=== PATIENT | female | born 1950 | race Caucasian/White ===

== ENCOUNTER 2019-09-26 12:30 | Outpatient (RCR) | payer OTHER, SELFPAY ==
--- NOTE | 2019-08-30 11:04 | PTOPEVAL ---
PHYSICAL THERAPY EVALUATION AND PLAN OF CARE Thank you for referring this patient to [facility]. Pat will be seen in physical therapy 1-2x/week for 4-6 weeks to treat left shoulder pain. Please review, sign, date and return this plan of care RAMSES. I agree with and certify that the following plan of care is medically necessary. Referring Physician Date Attending Provider: Viktor Espinal MD Assessment Status Evaluation Outpatient Past Medical History Neurological History Hx Parkinson's Disease Yes Cardiovascular History Hx Hypercholesterolemia Yes Hx Hypertension Yes Evaluation Information Problem Diagnosis left partial rotator cuff tear Onset 05/09/2019 Cause insidious Subjective Information Pat is here today with 4 Query Text:As Reported By Patient/ months of left shoulder pain Family diagnosed as a partial rotator cuff tear. She does not recall and injury, but she does participate in [email or web address] program and Spinning class for Parkinson's disease, so she wonders if it occured with some of the exercises. She received a cotisone injection a week ago and she feels like it is night and day. Left Shoulder(s) Reported Pain Level 0 Pain Description Sharp Pain Frequency Chronic,Intermittent Current Pain Intensity 0 Lowest Pain Intensity 0 Greatest Pain Intensity 7 Pain Aggravating Factors Exercise/Activity Pain Score 0: Self Report Scapular/ Shoulder Range of Motion Left Shoulder Flexion - Active 131 Shoulder Abduction - Active 100 Shoulder Medial Rotation - Active T6 Query Text:Reach Behind the Back Shoulder Lateral Rotation - Active Occiput Query Text:Reach Behind the Head Scapular/Shoulder Range of Motion stiffness Comments Scapular/Shoulder Left Shoulder Flexion Strength 4 Good Shoulder Abduction Strength 4+ Good + Shoulder Medial Rotation Strength 4+ Good + Shoulder Lateral Rotation Strength 4- Good - Posture Thoracic Spine Posture Flattened Thorax Posture Neutral Lumbar Spine Posture Decreased Lordosis Shoulder Posture (L) Forward,(R) Forward Scapula Posture (R) Depressed,(L) Tipped Palpation trigger point to left levator scapula; left shoulder rests
--- NOTE | 2019-09-26 13:25 | PTOPEVAL ---
PHYSICAL THERAPY DISCHARGE REPORT Thank you for referring this patient to [facility]. I recommend Pat to discharge from PT with HEP at this time. Please review, sign, date and return this plan of care RAMSES. I agree with and certify that the following plan of care is medically necessary. Referring Physician Date Attending Provider: Viktor Espinal MD Discharge Outpatient Past Medical History Neurological History Hx Parkinson's Disease Yes Cardiovascular History Hx Hypercholesterolemia Yes Hx Hypertension Yes Evaluation Information Problem Diagnosis left partial rotator cuff tear Onset 05/09/2019 Cause insidious Subjective Information Pat is here today after 5 PT Query Text:As Reported By Patient/ sessions for left shoulder Family pain. She reports she is able to use her 2# weights at her exercise class again and she is able to sleep without pain. Reports she feels confident in her continued rehabilitation. Numeric (1 - 10) Self Report Pain Assessment Left Shoulder(s) Reported Pain Level 1 Interventions Used By Clinicians Exercise,Joint Mobilization Pain Score Pain Score 1: Self Report Scapular/ Shoulder Range of Motion Left Shoulder Flexion - Active 150 Shoulder Abduction - Active 140 Shoulder Medial Rotation - Active T6 Query Text:Reach Behind the Back Shoulder Lateral Rotation - Active T3 Query Text:Reach Behind the Head Scapular/Shoulder Range of Motion stiffness Comments Scapular/Shoulder Left Shoulder Flexion Strength 4+ Good + Shoulder Abduction Strength 5 Normal Shoulder Medial Rotation Strength 5 Normal Shoulder Lateral Rotation Strength 4+ Good + Palpation decreased tenderness to perispacular muscles Clinical Summary Hafsa has participated in physical therapy for 5 visits for left shoulder pain. She was provided with and educated on home exercise program, of which she is now very confident in her abilities to perform independently. She presents today having met or nearly met her goals for left shoulder function and she presents as performing at baseline activity level. I
== END 2019-09-26 14:47 | disposition home or self-care (01) ==
LOC: ANHPT 12:30
PROVIDERS: PCP Family Medicine; Visit Provider Orthopaedic Surgery
DX: M75.112 Incomplete rotator cuff tear or rupture of left shoulder, not specified as traumatic (principal)
CPT/HCPCS: 97110; 97140; 97162

== ENCOUNTER → 2020-06-11 11:03 | Outpatient (CLI) | payer OTHER, SELFPAY ==
--- NOTE | ~2020-06-11 | XR_ITS ---
EXAMINATION: XR hip RT min 2V DATE: 06/11/2020 11:22 INDICATION: Right hip pain TECHNIQUE: Two views of right hip were obtained. COMPARISON: 07/17/2014 FINDINGS: Bone alignment is normal. There is no fracture. Mild osteoarthritis of the right hip is unc hanged. Calcified atherosclerosis is noted. IMPRESSION: 1. Mild right hip osteoarthritis without acute findings or significant interval change. Reviewed, dictated and finalized at location A. RNATIONAL TRADE ANALYST
== END ==
PROVIDERS: PCP Internal Medicine; Visit Provider Internal Medicine
DX: M16.11 Unilateral primary osteoarthritis, right hip (principal)
CPT/HCPCS: 73502

== ENCOUNTER 2020-09-12 11:00 | Outpatient (RCR) | payer OTHER, SELFPAY ==
--- NOTE | 2020-08-13 10:59 | LSVTBIG ---
PHYSICAL THERAPY EVALUATION AND PLAN OF CARE Thank you for referring Farhana Tran to [facility].? The patient is scheduled to be seen for therapy? 2x/week for 4 weeks. Please review, sign, date and return this plan of care RAMSES. I agree with and certify that the following plan of care is medically necessary. Referring Physician Date Attending Provider: Uriel Kim MD [facility] Physical Therapy Outpatient Past Medical History Neurological History Hx Parkinson's Disease Yes Cardiovascular History Hx Hypercholesterolemia Yes Hx Hypertension Yes Evaluation Information Problem Diagnosis Parkinson's Disease Subjective Information Reports a worsening of Query Text:As Reported By Patient/ Parkinson's Disease in the Family last 6 months, mostly due to decreased activity and exercise from gym closing during the pandemic. Hafsa is usually a very motivated and active person. Pain Assessment Timing of Pain Assessment Timing of Pain Assessment Assessment Pain Scale Pain Scale Used Numeric (1 - 10) Self Report Pain Assessment Right Hip(s) Reported Pain Level 3 Pain Score Pain Score 3: Self Report Additional Pain Score Comments OA of right hip; at rest she is ok, but feels pain in the groin when she gets up and walks Interventions Used Interventions Used By Clinicians Exercise Pain Relief Interventions Used By Medication Patient Parkinson's Related History Parkinson's Related History Diagnosis/Stage Date Of Initial 2015 Diagnosis What Were Your Initial Symptoms Of tremor Parkinson's Disease? Do You Have A Tremor? Yes Describe Tremors left hand tremor Medication For Parkinson's Disease carbadopa-levadopa 3x/day In What Ways Are Your Medications For states she does not notice an Parkinson's Helpful? up and a down to taking the medication, no significant changes, but she does take the medications Does Your Parkinson Medication Affect not significantly Your Movement? Please Describe Do You Experience On/Off Symptoms? no Please Describe Have You Had Neurosurgery? Please none Describe Have You Had Orthopedic Surgery? Please none Describe Motor Symptoms Motor Symptoms When Did You First Start To Notice increased changes in the last Changes In Movement You Associate with 6 months, worsening symptoms PD of PD; back seems to
--- NOTE | 2020-08-15 11:15 | LSVTBIG ---
OCCUPATIONAL THERAPY EVALUATION REPORT & D/C SUMMARY 08/15/2020 Hafsa presents to outpatient OT with dx of Parkinson's Disease. OT evaluation reveals intact, functional, and symmetrical UE functional use. Patient has good motor control of BUEs, symmetrical amplitude of movement, and no coordination deficits identified. Pat also verbalizes concern about having a co-pay and attending therapy 4 days/week as [facility]SVT program typically recommends. Considering the patient's high-level functioning she is appropriate for a modified version of the LSVT program, only attending 2x/week. This will be completed by PT. No skilled OT needs identified at this time. Thank you for referring Farhana Tran to [facility].? Please review, sign, date and return this evaluation report RAMSES. I agree with and certify that the following plan of care is medically necessary. Referring Physician Date Referring Provider: [facility] Evaluation Therapy Discipline Therapy Discipline Occupational Therapy Therapy Assessment Status Assessment Status Assessment Status Evaluation Outpatient Past Medical History Neurological History Hx Parkinson's Disease Yes Cardiovascular History Hx Hypercholesterolemia Yes Hx Hypertension Yes Evaluation Information Problem Diagnosis Parkinson's Disease Subjective Information Reports a worsening of Query Text:As Reported By Patient/ Parkinson's Disease in the Family last 6 months, mostly due to decreased activity and exercise from gym closing during the pandemic. Hafsa is usually a very motivated and active person. Previous Treatments Previous Treatments For This Problem She states she attends [employer] 2 days/week. Pain Assessment Timing of Pain Assessment Timing of Pain Assessment Assessment Self Report Self Report Pain Level 0 Pain Score Pain Score 0: Self Report Parkinson's Related History Parkinson's Related History Diagnosis/Stage Date Of Initial 2015 Diagnosis What Were Your Initial Symptoms Of Tremor Parkinson's Disease? Do You Have A Tremor? Yes Describe Tremors left hand tremor, freezing gait Medication For Parkinson's Disease carbadopa-levadopa 3x/day In What Ways Are Your Medications For states she does not notice a Parkinson's Helpful? change with medication doses Does Your Parkinson Medication Affect not significantly Your Movement? Please Describe Do You Experience On/Off Symptoms? no Please Describe Have You Had Neurosurgery? Please none Describe Have You Had Orthopedic Surgery? Please none Describe Social History Social History Stair Rails Yes,Ri
--- NOTE | 2020-08-29 09:49 | PCPTNOTE ---
Patient called & cancelled scheduled appointment this date due to illness.
--- NOTE | 2020-09-05 11:45 | PCPTNOTE ---
Patient called & cancelled scheduled appointment this date due to having to take her dog to the ER.
--- NOTE | 2020-09-12 11:35 | LSVTBIG ---
PHYSICAL THERAPY DISCHARGE NOTE Thank you for referring Farhana Tran to [facility]. Please review, sign, date and return this plan of care RAMSES. I agree with and certify that the following plan of care is medically necessary. Referring Physician Date Attending Provider: Uriel Kim MD [facility] Physical Therapy Discharge Diagnosis Parkinson's Disease Subjective Information Reports that she feels better, Query Text:As Reported By Patient/ but continues to feel there Family is still some strength to be had. Self Report Pain Assessment Right Hip(s) Reported Pain Level 1 Pain Score Pain Score 1: Self Report Additional Pain Score Comments OA of right hip; at rest she is ok, but feels pain in the groin when she gets up and walks Balance Assessment Goldman Balance Assessment 54/56 POINTS Timed Up and Go Test (TUG) (Seconds) 7 Assistive Devices None Comments 1month ago = 13seconds 5 Time Sit to Stand Time in Seconds 9.25 5 Time Sit to Stand Comments 1month ago = 12.36seconds Functional Gait Assessment: Gait Assessment 6 Minute Walk Total Distance (feet) 1,337 6 Minute Walk Gait Speed Score (feet/ 3.71 second) 6 Minute Gait Comments limited arm swing, arms generally held in high guard position out of habit PT Clinical Summary Farhana is a 69 yo female diagnosed with Parkinson's Disease. She presents today meeting or nearly meeting all functional goals. All functional measures are measuring within normal limits compared to average females of her age. Hafsa describes feeling a greater awareness of her body when she is walking and functioning. She is able to self cue big movements independently while wlaking and performing functional tasks including putting on her coat, cooking, and while stepping over or around obstacles. Hafsa takes a [employer] class and during the
== END 2020-09-12 12:41 | disposition home or self-care (01) ==
LOC: ANHPT 11:00
PROVIDERS: PCP Internal Medicine
DX: G20 Parkinson's disease (principal)
CPT/HCPCS: 97110; 97116; 97162; 97165

== ENCOUNTER 2021-05-30 10:44 | Outpatient (CLI) | payer OTHER, SELFPAY ==
--- NOTE | ~2021-05-30 | MR_ITS ---
EXAMINATION: MR shoulder RT wo con DATE: 05/30/2021 12:53 INDICATION: Right shoulder pain TECHNIQUE: Magnetic resonance imaging (MRI) of the right shoulder was performed without intravenous c ontrast. Sequences included axial PD-weighted FS FSE, coronal oblique PD-weighted FS FSE, coronal obl ique T2-weighted FS FSE, sagittal PD-weighted FS FSE, and sagittal T1-weighted SE. COMPARISON: None. FINDINGS: Coracoacromial arch: The acromion undersurface is curved in morphology (type II). The coracoacromial ligament is normal. M ild to moderate acromioclavicular osteoarthritis with mild subarticular cystic change at the lateral head of the clavicle. Rotator cuff: Mild to moderate supraspinatus and subscapularis tendinopathy. There is a small partial-thickness art icular sided tear at the superior facet footplate of the supraspinatus tendon which measures 5 mm AP and involves 1/2-2/3 of the tendon thickness. Infraspinatus and teres minor tendons are normal. Yu l rotator cuff muscle bulk and signal. Biceps tendon, glenoid labrum and glenohumeral cartilage: Long head of the biceps tendon is normal. Large labral tear beginning posterosuperiorly at the 10:30 position and extending along the superior and anterior labrum to the 5:00 position inferiorly. The po sterior and inferior labrum appears intact but small. Extensive partial thickness cartilage loss thro ughout the humeral head and glenoid with generally smooth appearing surface and without degenerative subchondral changes. The cartilage loss appears greatest along the anterior glenoid. Fluid: Small glenohumeral joint effusion with mild synovitis at the axillary recess and at the deep subscapu lar recess. There is [id number] amount fluid in the subacromial/subdeltoid bursa consistent wi th bursitis. Bones: Normal marrow signal. No fracture or pathologic marrow replacing process. IMPRESSION: 1. Mild to moderate supraspinatus and subscapularis tendinopathy with small moderate severity articul ar sided tear at the distal supraspinatus tendon. 2. Moderate glenohumeral osteoarthritis with large labral tear extending from the posterior superior glenoid anteriorly and inferiorly to the anteroinferior glenoid and small glenohumeral joint effusion . 3. Mild to moderate acromioclavicular osteoarthritis. 4. Mild to moderate subacromial subdeltoid bursitis. Reviewed, dictated and finalized at location A. IMPRESSION: 1. Mild to moderate supraspinatus and subscapularis tendinopathy with small mod erate severity articular sided tear at the distal supraspinatus tendon. 2. Moderate glenohumeral osteoarthritis with large labral tear extending from t he posterior superior glenoid anteriorly and inferiorly to the anteroinferior g lenoid and small glenohumeral joint effusion. 3. Mild to moderate acromioclavicular osteoarthritis. 4. Mild to moderate subacromial subdeltoid bursitis.
== END 2021-05-30 10:45 | disposition home or self-care (01) ==
PROVIDERS: PCP Internal Medicine; Visit Provider Orthopaedic Surgery
DX: M19.011 Primary osteoarthritis, right shoulder (principal); M75.51 Bursitis of right shoulder; S43.431A Superior glenoid labrum lesion of right shoulder, initial encounter
CPT/HCPCS: 73221

== ENCOUNTER 2021-06-06 10:47 | Outpatient (CLI) | payer OTHER, SELFPAY ==
--- NOTE | ~2021-06-06 | XR_ITS ---
EXAMINATION: XR lg joint inject/asp w image DATE: 06/06/2021 11:33 INDICATION: Osteoarthritis of right shoulder. TECHNIQUE: A time-out was performed to verify the patient's name, date of , and procedure to b e performed. The procedure including the risks, benefits, and alternatives was discussed with the pat ient. Risks discussed included bleeding and infection. The patient understood the risks and agreed to proceed. The skin overlying the right glenohumeral joint was prepped and draped in usual sterile fa shion. Anesthetic was administered with 1% lidocaine subcutaneously. A 22 G needle was advanced und er fluoroscopic guidance into the joint. Injection of 1 mL of Omnipaque 240 confirmed intra-articula r position of the needle. Subsequently, injectate consisting of 3 mL 1% lidocaine and 1 mL 80 mg/mL Depo-Medrol was instilled. The needle was removed and the entry site was cleaned and dressed. There were no immediate complications. Fluoroscopy exposure time was 0.0 minutes. The total number of imag es was 2. FINDINGS: Real-time fluoroscopy demonstrates the needle in the right glenohumeral joint. Patient's pa in prior to procedure:8.5/10. Patient's pain following the procedure: 3/10. IMPRESSION: 1. Fluoroscopy guided right glenohumeral joint injection of local anesthetic and steroid with decreas e in the patient's presenting pain. Reviewed, dictated and finalized at location A. IMPRESSION: 1. Fluoroscopy guided right glenohumeral joint injection of local anesthetic an d steroid with decrease in the patient's presenting pain.
== END 2021-06-06 10:48 | disposition home or self-care (01) ==
LOC: ANHIMG 10:54
PROVIDERS: PCP Internal Medicine; Visit Provider Orthopaedic Surgery
DX: M19.011 Primary osteoarthritis, right shoulder (principal)
CPT/HCPCS: 20610; 77002; J1040; Q9966

== ENCOUNTER 2021-07-16 12:30 | Outpatient (RCR) | payer OTHER, SELFPAY ==
--- NOTE | 2021-06-18 14:55 | PTOPEVAL ---
Thank you for referring Farhana Tran to [facility].? The patient is scheduled to be seen for therapy? 2 x/week for 4 weeks. Please review, sign, date and return this plan of care RAMSES. I agree with and certify that the following plan of care is medically necessary. Referring Physician Date Attending Provider: Viktor Espinal MD Diagnosis right RTC tear and OA GH joint Additional Evaluation Detail MRI: Mild to moderate supraspinatus and subscapularis tendinopathy with small moderate severity articular sided tear at the distal supraspinatus tendon. 2. Moderate glenohumeral osteoarthritis with large labral tear extending from the posterior superior glenoid anteriorly and inferiorly to the anteroinferior glenoid and small glenohumeral joint effusion. 3. Mild to moderate acromioclavicular osteoarthritis. 4. Mild to moderate subacromial subdeltoid bursitis. Subjective Information C/o right shoulder pain for ~ Query Text:As Reported By Patient/ 6 months. Family She received an injection to the shoulder on 06/06/21, but does not feel like it helped. 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 She goes to the [facility] for spinning class and resistance training. she also attends [employer] class and has had to have modification made due to pain. Pain Assessment Right Shoulder(s) Reported Pain Level 3 Pain Description Aching,Sharp Pain Frequency Continuous Lowest Pain Intensity 2 Greatest Pain Intensity 8 Pain Aggravating Factors Exercise/Activity,Lifting Upper Extremity Range of Motion Scapular/ Shoulder Range of Motion Left Shoulder Flexion - Active 140 Shoulder Extension - Active 50 Shoulder Abduction - Active 120 Shoulder Medial Rotation - Active T9:Reach Behind the Back
--- NOTE | 2021-07-04 10:51 | PCPTNOTE ---
Patient called & cancelled scheduled appointment this date due to not feeling well.
--- NOTE | 2021-07-16 13:19 | PTOPEVAL ---
Physical Therapy Discharge Summary Thank you for referring Farhana Tran to [facility].?Farhana has attended 8 therapy visits to address her UE impairments. She demonstrates improved UE function with improved range, strength and pain. She has achieved her therapy goals at this time. Will DC skilled therapy services with recommendations to continue HEP. Please review, sign, date and return this discharge summary RAMSES. I agree with and certify that the following plan of care is medically necessary. Referring Physician Date Attending Provider: Viktor Espinal MD Diagnosis right RTC tear and OA GH joint Additional Evaluation Detail MRI: Mild to moderate supraspinatus and subscapularis tendinopathy with small moderate severity articular sided tear at the distal supraspinatus tendon. 2. Moderate glenohumeral osteoarthritis with large labral tear extending from the posterior superior glenoid anteriorly and inferiorly to the anteroinferior glenoid and small glenohumeral joint effusion. 3. Mild to moderate acromioclavicular osteoarthritis. 4. Mild to moderate subacromial subdeltoid bursitis. Subjective Information She received an injection to Query Text:As Reported By Patient/ the shoulder on 06/06/21. As Family result of skilled therapy services she reports improved pain and improved UE function. She is able to lift objects better. 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 Denies problems with driving or recreational activities/ exercise class. Pain Assessment Right Shoulder(s) Reported Pain Level 1 Pain Description Aching Lowest Pain Intensity 1 Greatest Pain Intensity 4 Pain Aggravating Factors Prolonged Position Upper Extremity Range of Motion Scapular/ Shoulder Range of Motion Right Shoulder Flexion - Active 135 Shoulder Extension - Active 50 Shoulder Abduction - Active 110 Shoulder Medial Rotation - Active T11:Reach Behind the Back Shoulder Lateral Rotation - Active C7:Reach Behind the Head Scapular/Shoulder Range of Motion no pain with shoulder motions
== END 2021-07-16 17:08 | disposition home or self-care (01) ==
LOC: ANHPT 12:30
PROVIDERS: PCP Internal Medicine; Visit Provider Orthopaedic Surgery
DX: M75.101 Unspecified rotator cuff tear or rupture of right shoulder, not specified as traumatic (principal); M19.011 Primary osteoarthritis, right shoulder
CPT/HCPCS: 97035; 97110; 97140; 97162

== ENCOUNTER 2021-09-07 10:43 | Emergency (ER) | payer OTHER, SELFPAY ==
[2021-09-07 10:53] VITALS: BP 110/58; PULSE 65; RESP 16; TEMP 36.4; O2SAT 99
--- NOTE | 2021-09-07 11:17 | ED.EYEPROB ---
HPI - Eye Problem General Chief complaint: Eye Problems Stated complaint: left eye itchy/redness Time Seen by Provider: 09/07/21 11:18 Source: patient, RN notes reviewed and old records reviewed Mode of arrival: ambulatory Limitations: no limitations History of Present Illness HPI Narrative: 70 year old female who presents to [facility] care with complaints of red swollen red irritated lesion to the left lower eyelid for 1 week duration. Patient denies any acute pain to her left eye with no drainage noted or any visual changes report that area is itchy. Patient has not had any eye drainage or any redness to sclera or conjunctiva. chief complaint: other (stye left lower eyelid) Onset (ago): week(s) (1) Onset description: gradual Location: left eye Related Data Home Medications Medication Instructions Recorded Confirmed aspirin 325 mg tablet 325 mg PO DAILY 07/11/19 09/07/21 carbidopa 25 mg-levodopa 100 mg 2 tablet PO TID tablet 01/04/20 09/07/21 tablet cholecalciferol (vitamin D3) 125 125 mcg PO DAILY 01/04/20 09/07/21 mcg (5,000 unit) capsule magnesium 250 mg tablet 250 mg PO .three times a week 01/04/20 09/07/21 tablet potassium chloride [Klor-Con M20] 20 meq PO DAILY 09/07/21 09/07/21 Allergies Allergy/AdvReac Type Severity Reaction Status Date / Time JOVON Inhibitors Allergy Mild cough Verified 09/07/21 10:59 cephalexin Allergy Mild rash Verified 09/07/21 10:59 Review of Systems Review of Systems: CONSTITUTIONAL: Denies fever, chills, or sweats. EYES: Denies visual changes, redness, or discharge.positive for lesion which is red and raised to left lower eyelid ENT: Denies rhinorrhea, congestion, sore throat, or otalgia. CARDIOVASCULAR: Denies chest pain, palpitations, or edema. RESPIRATORY: Denies cough or dyspnea. GASTROINTESTINAL: Denies abdominal pain, nausea, vomiting, or diarrhea. GENITOURINARY: Denies dysuria or hematuria. SKIN: Denies rash or itching. MUSCULOSKELETAL: Denies back pain, joint pain, or myalgia. NEUROLOGIC: Denies headache, numbness, or weakness.fine tremors noted to hand related to Parkinson disease PSYCHIATRIC: Denies anxiety or depression. All systems reviewed & are unremarkable except as noted in HPI and below PMFSH Past Medical History Medical History Essential (primary) hypertension Hyperlipidemia Parkinsons disease Rotator cuff tear Family History Family History Mother Cerebrovascular accident Family history of heart disease in male family member before age 55 Family history of lung cancer, Onset Age: 84 Father Family history of heart disease in male family member before age 55 Acute myocardial infarction, Onset Age: 51 Grandparent Acute myocardial infarction, Onset Age: 72 Family history unknown, Onset Age: 88 Social History Social History Smoking status: Former smoker Second hand tobacco smoke exposure: No Smoking end date: 08/09/05 Alcohol intake: never Substance use type: does not use Gender identity (if verbalized by the patient): Female Comments At time of signature, agree with nursing past medical, surgical, social and family history. There is no relevant family history pertinent to the presenting complaint Exam Narrative: GENERAL: Well-appearing, well-nourished, and in no acute distress. HEAD: Normocephalic, atraumatic. EYES: PERRLA and EOMI. small raised lesion to the left lower eyelid with no drainage noted no visual changes or any acute eye pain. ENT: Nares clear, no rhinorrhea or epistaxis. Mucous membranes moist.TM's normal with good light reflex, throat pink with no lesions exudates or tonsil swelling. NECK: Supple.no lymphadenopathy CHEST: Clear to auscultation. No respiratory distress.SAO2 99% on room air HEART: Regular rate and rhythm. No
== END 2021-09-07 11:40 | disposition home or self-care (01) ==
PROVIDERS: Emergency Provider Registered Nurse
DX: H00.015 Hordeolum externum left lower eyelid (principal); Z87.891 Personal history of nicotine dependence; I10 Essential (primary) hypertension; E78.5 Hyperlipidemia, unspecified; G20 Parkinson's disease; Z79.82 Long term (current) use of aspirin
CPT/HCPCS: 99213; G0463

== ENCOUNTER 2021-10-16 20:37 | Emergency (ER) | payer OTHER, SELFPAY ==
--- NOTE | ~2021-10-16 | XR_ITS ---
EXAMINATION: XR lumbar spine 2-3V DATE: 10/16/2021 21:31 INDICATION: Pain the left side of the lumbar spine TECHNIQUE: Anteroposterior and lateral views of the lumbar spine, and cone-down lateral view of the l umbosacral junction were obtained. COMPARISON: None. FINDINGS: S-shaped lumbar scoliosis with 20 degrees levocurvature between T12 and L2 and 20 degrees dextrocurva ture between L2 and L5. Sagittal alignment is normal. Minimal anterior wedging at T11 and T12. Lumbar vertebral body heights are normal. Body heights are normal. Severe disc height loss at L1-L2 and L4- L5, moderate disc height loss at T12-L1, L2-L3 and L5-S1 and mild disc height loss at L3-L4 at severa l levels in the lower thoracic spine. Moderate to severe lumbar facet osteoarthritis. Mild bilateral sacroiliac osteoarthritis. Atherosclerotic calcifications along the abdominal aorta and bilateral com mon iliac arteries. IMPRESSION: 1. S-shaped lumbar scoliosis with severe spondylosis. Reviewed, dictated and finalized at location A. ER RIVETER
[2021-10-16 20:39] VITALS: BP 139/69; PULSE 71; RESP 14; TEMP 36.6; O2SAT 100
--- NOTE | 2021-10-16 21:32 | ED.BACK ---
HPI - Back Pain/Injury General Chief Complaint: Extremity Problem,Nontraumatic Stated Complaint: nontraumatic L leg pain Time Seen by Provider: 10/16/21 20:50 Source: patient Mode of arrival: ambulatory Limitations: no limitations History of Present Illness HPI Narrative: 70-year-old female presents today with complaints of left lower back/buttock pain that radiates down the front of her leg to the knee. Patient denies any recent falls, injuries, or any aggravating factors that she is is aware of. Patient states the pain started couple weeks ago and was intermittent. She has been using Tylenol without any relief. Patient denies any urinary incontinence, fecal incontinence, saddle paresthesia, and increased weakness to lower extremities. Related Data Home Medications Medication Instructions Recorded Confirmed aspirin 325 mg tablet 325 mg PO DAILY 07/11/19 09/07/21 carbidopa 25 mg-levodopa 100 mg 2 tablet PO TID tablet 01/04/20 09/07/21 tablet cholecalciferol (vitamin D3) 125 125 mcg PO DAILY 01/04/20 09/07/21 mcg (5,000 unit) capsule magnesium 250 mg tablet 250 mg PO .three times a week 01/04/20 09/07/21 tablet potassium chloride [Klor-Con M20] 20 meq PO DAILY 09/07/21 09/07/21 Allergies Allergy/AdvReac Type Severity Reaction Status Date / Time JOVON Inhibitors Allergy Mild cough Verified 09/07/21 10:59 cephalexin Allergy Mild rash Verified 09/07/21 10:59 Review of Systems Review of Systems: CONSTITUTIONAL: Denies fever, chills, or sweats. EYES: Denies visual changes, redness, or discharge. ENT: Denies rhinorrhea, congestion, sore throat, or otalgia. CARDIOVASCULAR: Denies chest pain, palpitations, or edema. RESPIRATORY: Denies cough or dyspnea. GASTROINTESTINAL: Denies abdominal pain, nausea, vomiting, or diarrhea. GENITOURINARY: Denies dysuria or hematuria. SKIN: Denies rash or itching. MUSCULOSKELETAL: Left lower back/buttock pain radiating down the the front of the leg. Denies joint pain or myalgia. NEUROLOGIC: Denies headache, numbness, dizziness, or weakness. PSYCHIATRIC: Denies anxiety or depression. [facility] Past Medical History Medical History Essential (primary) hypertension Hyperlipidemia Parkinsons disease Rotator cuff tear Family History Family History Mother Cerebrovascular accident Family history of heart disease in male family member before age 55 Family history of lung cancer, Onset Age: 84 Father Family history of heart disease in male family member before age 55 Acute myocardial infarction, Onset Age: 51 Grandparent Acute myocardial infarction, Onset Age: 72 Family history unknown, Onset Age: 88 Social History Social History Smoking status: Former smoker Second hand tobacco smoke exposure: No Smoking end date: 08/09/05 Alcohol intake: never Substance use type: does not use Gender identity (if verbalized by the patient): Female Exam Narrative: GENERAL: Well-appearing, well-nourished, and in no acute distress. HEAD: Normocephalic, atraumatic. EYES: PERRLA and EOMI. ENT: Nares clear, no rhinorrhea or epistaxis. Mucous membranes moist. Oropharynx without tonsillar hypertrophy exudate or other lesions. Bilateral TMs pearly crawley nonbulging NECK: Supple. No adenopathy or masses. No carotid bruits or JVD CHEST: Clear to auscultation. No respiratory distress. No wheezes rales or rhonchi HEART: Regular rate and rhythm. No murmur heard. Normal peripheral pulses. ABDOMEN: Soft, nontender, nondistended, normal active bowel sounds. BACK/SPINE: No spinal process tenderness. Tenderness to left sacral area. EXTREMITIES: Normal range of motion. No edema. SKIN: Warm, dry, no rash. NEURO: No focal deficits. Alert and oriented x3. PSYCH: Normal mood and affect. Course Course
[2021-10-16] MEDS: HYDROcodone/acetaminophen (*CRX) 5-325 MG TABLET 1 TAB PO (21:33)
[2021-10-16 22:44] VITALS: BP 142/86; PULSE 86; RESP 17; O2SAT 96
[2021-10-16] MEDS: LIDOCAINE 5% PATCH 1 PATCH TRANSDERM (22:45)
== END 2021-10-16 22:44 | disposition home or self-care (01) ==
PROVIDERS: Emergency Provider Nurse Practitioner Family; PCP Internal Medicine
DX: M54.42 Lumbago with sciatica, left side (principal); I10 Essential (primary) hypertension; E78.5 Hyperlipidemia, unspecified; G20 Parkinson's disease; Z79.82 Long term (current) use of aspirin; Z87.891 Personal history of nicotine dependence; M47.816 Spondylosis without myelopathy or radiculopathy, lumbar region
CPT/HCPCS: 72100; 99283; A9270; J1100

== ENCOUNTER 2021-10-23 22:33 | Emergency (ER) | payer OTHER, SELFPAY ==
[2021-10-23 22:38] VITALS: BP 131/53; PULSE 66; RESP 18; TEMP 37.1; O2SAT 99
--- NOTE | 2021-10-23 23:44 | PC.NURSE ---
Care of pt assumed at this time
[2021-10-23 23:45] VITALS: BP 130/55; PULSE 83; RESP 18
[2021-10-24 00:12] LABS: Add Urine Microscopic? YES; Appearance Urine Cloudy (Clear); Bilirubin Urine Negative (Negative); Blood Urine 1+ (Negative); Color Urine Yellow (Yellow); Glucose Urine UA Negative (Negative); Ketones Urine Trace mg/dL (Negative); Leukocyte Esterase Ur Negative LEU/UL (Negative); Mucus Urine Rare /lpf; Nitrate Urine Negative (Negative); Protein Urine Negative (Negative); Specific Grav Ur 1.019 (1.001-1.035); Squamous Epithelial Cell Urine Occasional /hpf (Few); Urobilinogen Urine Negative mg/dL (<2.0); WBC Urine 0-3 /hpf
--- NOTE | 2021-10-24 00:23 | ED.FALL ---
HPI - Fall General Chief Complaint: Fall Stated Complaint: dizzy/left leg pain Time Seen by Provider: 10/23/21 22:48 Source: patient Mode of arrival: ambulatory Limitations: no limitations History of Present Illness HPI Narrative: 70-year-old female comes in with complaints of not feeling right over the last week. Patient seen here last week diagnosed with sciatica sent home with Larned, appears she visited her primary on the and also got a prescription for Larned. Patient states she thinks she was taking her prescription written from here and the primary's prescription. Primary's prescription was Larned 10/325 cut in 1:30 tablet every 8 hours as needed for pain prescription here was Larned 5 mg/325. Unsure of the amount of narcotics patient has been taking the last week. Patient states symptoms started after the new medications. Patient with what she calls a controlled fall today. Patient did not actually hit the floor. Patient's legs buckled and she caught herself on the wall. Patient's daughter at the bedside. States she has not been herself today. This morning patient seemed to be very out of it. At this point daughter states patient is much more herself. Patient alert and oriented x4. Still with pain to the left buttock radiating down the leg. Patient educated on pain management and aware that pain might not go away. Goal for pain management is tolerable. Related Data Home Medications Medication Instructions Recorded Confirmed aspirin 325 mg tablet 325 mg PO DAILY 07/11/19 09/07/21 carbidopa 25 mg-levodopa 100 mg 2 tablet PO TID tablet 01/04/20 09/07/21 tablet cholecalciferol (vitamin D3) 125 125 mcg PO DAILY 01/04/20 09/07/21 mcg (5,000 unit) capsule magnesium 250 mg tablet 250 mg PO .three times a week 01/04/20 09/07/21 tablet potassium chloride [Klor-Con M20] 20 meq PO DAILY 09/07/21 09/07/21 Allergies Allergy/AdvReac Type Severity Reaction Status Date / Time JOVON Inhibitors Allergy Mild cough Verified 09/07/21 10:59 cephalexin Allergy Mild rash Verified 09/07/21 10:59 Review of Systems Review of Systems: CONSTITUTIONAL: Denies fever, chills, or sweats. EYES: Denies visual changes, redness, or discharge. ENT: Denies rhinorrhea, congestion, sore throat, or otalgia. CARDIOVASCULAR: Denies chest pain, palpitations, or edema. RESPIRATORY: Denies cough or dyspnea. GASTROINTESTINAL: Denies abdominal pain, nausea, vomiting, or diarrhea. GENITOURINARY: Denies dysuria or hematuria. SKIN: Denies rash or itching. MUSCULOSKELETAL: Denies back pain, joint pain, or myalgia. NEUROLOGIC: Just feels off. Denies headache, numbness, dizziness, or weakness. PSYCHIATRIC: Denies anxiety or depression. PMFSH Past Medical History Medical History Essential (primary) hypertension Hyperlipidemia Parkinsons disease Rotator cuff tear Family History Family History Mother Cerebrovascular accident Family history of heart disease in male family member before age 55 Family history of lung cancer, Onset Age: 84 Father Family history of heart disease in male family member before age 55 Acute myocardial infarction, Onset Age: 51 Grandparent Acute myocardial infarction, Onset Age: 72 Family history unknown, Onset Age: 88 Social History Social History Smoking status: Former smoker Second hand tobacco smoke exposure: No Smoking end date: 08/09/05 Alcohol intake: never Substance use type: does not use Gender identity (if verbalized by the patient): Female Exam Narrative: GENERAL: Well-appearing, well-nourished, and in no acute distress. HEAD: Normocephalic, atraumatic. EYES: PERRLA and EOMI. ENT: Nares clear, no rhinorrhea or epistaxis. Mucous membranes moist. Oropharynx without tonsillar hypertrophy exudat
[2021-10-24 00:49] VITALS: BP 138/53; PULSE 65; RESP 19; O2SAT 98
== END 2021-10-24 00:51 | disposition home or self-care (01) ==
PROVIDERS: Emergency Medicine; Emergency Provider Nurse Practitioner Family; PCP Internal Medicine
DX: R42 Dizziness and giddiness (principal); T39.1X1A Poisoning by 4-Aminophenol derivatives, accidental (unintentional), initial encounter; M54.31 Sciatica, right side; G20 Parkinson's disease; I10 Essential (primary) hypertension; E78.5 Hyperlipidemia, unspecified; Z79.82 Long term (current) use of aspirin; Z87.891 Personal history of nicotine dependence
CPT/HCPCS: 51701; 81001; 99283

== ENCOUNTER 2021-12-16 14:00 | Outpatient (RCR) | payer OTHER, SELFPAY ==
--- NOTE | 2021-10-30 15:52 | PTOPEVAL ---
Thank you for referring Farhana Tran to [facility].? The patient is scheduled to be seen for therapy?1-2x/week for 6-8 weeks. Please review, sign, date and return this plan of care RAMSES. I agree with and certify that the following plan of care is medically necessary. Referring Physician Date Attending Provider: Lio Hernandez, MD Diagnosis acute low back pain with sciatica Onset 4 months Cause unknown Additional Evaluation Detail x-ray: S-shaped lumbar scoliosis with severe spondylosis. She lives alone in a house with steps to enter. She is limiting her normal task due to her increased symptoms. She is using an SBQC. Subjective Information C/o left low back pain Query Text:As Reported By Patient/ radiating into left buttock/ Family thigh region. c/o left hand numbness. Denies any injury. She was performing rock steady and [employer] exercises, but has not been able to leonel due to pain. She reports increased pain with standing, prolonged position, sleeping, sitting, sanitation supervisor, carrying task. She is not able to drive due to pain. Pain Assessment Left Lower Back Reported Pain Level 8 Pain Description Numbness,Radiating,Shooting, Tender on Palpation,Tingling Pain Radiation Left Leg Pain Frequency Chronic,Continuous Lowest Pain Intensity 3 Greatest Pain Intensity 10 Pain Aggravating Factors Exercise/Activity,Prolonged Position,Weight Bearing/ Standing Lower Extremity Muscle Strength Testing General Lower Extremity Strength Gross Lower Extremity Strength right ankle DF 5/5, knee ext: 5/5, hip flex: 4/5 jennifer hip ext: 3-/5, abd: 2/5 Hip Strength Left Hip Flexion Strength 3 Fair Hip Extension Strength 3- Fair - Hip Abduction Strength 2 Poor Hip Adduction Strength 2 Poor Knee Strength Left Knee Flexion Strength 3+ Fair + Knee Extension Strength 4- Good - Muscle Length Testing Muscle Length Testing Two-Joint Hip Flexor Shortened Muscles Short (R) Iliopsoas,Short (L)
--- NOTE | 2021-11-27 18:06 | PTOPEVAL ---
Physical Therapy Progress Note Thank you for referring Farhana Tran to [facility].? Pt referred to therapy due to acute low back pain with sciatica symptoms into left LE. She has complex medical history including Parkinson's disease. She has attended 9 therapy visits. As a result of therapy services she demonstrate improved pain, improved leonel with daily task and improved walking. She continues to have pelvic rotation impairment with mobility task. Poor position is contributed by her muscle weakness and abnormal tone and walking deviations. She is progressing towards her therapy goals with improve trunk motion, muscle strength and leonel with walking task. She would benefit from additional therapy to address her remaining goals and improve her function. She will be returning to her [employer] class to improve her general strength and fitness. The patient is scheduled to be seen for therapy?1 x/week for 3 weeks. Please review, sign, date and return this plan of care RAMSES. I agree with and certify that the following plan of care is medically necessary. Referring Physician Date Attending Provider: Lio Hernandez, Diagnosis acute low back pain with sciatica Onset 4 months Additional Evaluation Detail x-ray: S-shaped lumbar scoliosis with severe spondylosis. She lives alone in a house with steps to enter. She is limiting her normal task due to her increased symptoms. She is using an SBQC. Subjective Information C/o left low back pain Query Text:As Reported By Patient/ radiating into left buttock/ Family thigh region, but improved intensity. She has improved symptoms if she is able to sit and rest. She is sleeping better without increased pain. 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 She has returned to driving. Pain Assessment Left Lower Back Reported Pain Level 3 Pain Description Numbness,Radiating,Shooting, Tender on Palpation,Tingling Pain Radiation Left Leg Pain Frequency Chronic,Continuous Lowest Pain Intensity 1 Greatest Pain Intensity 7 Cervical and Lumbar ROM Lumbar ROM Lumbar Flexion Active fitter hand to Lumbar Comments 25% trunk rotation left and 10 % rotation to right- seated, painful to left full flex in seated position- no pain Lowe
--- NOTE | 2021-12-16 14:44 | PTOPEVAL ---
Physical Therapy Discharge Summary Thank you for referring Farhana Tran to [facility].? She was referred to therapy due to acute low back pain with sciatica symptoms into left LE. She has complex medical history including Parkinson's disease. She has attended 12 therapy visits from 10/30/21 to 12/16/21. As a result of therapy services she demonstrates improved back/buttock and leg pain, improved tolerance and performance with daily task and improved walking. Demonstrates improved LE strength and improved hip and back motion without increased pain symptoms. Demonstrates improved trunk position and control in standing and sitting position. Demonstrates consistent pelvic alignment. Farhana has met to partially met her therapy goals at this time. She demonstrates understanding and compliance with her HEP. She is returning to her normal activities without increased symptoms. Will DC skilled PT services at this time. Please review, sign, date and return this discharge summary RAMSES. I agree with and certify that the following plan of care is medically necessary. Referring Physician Date Attending Provider: Lio Hernandez, CC: Dr. Uriel Willis MD Diagnosis acute low back pain with sciatica Onset 4 months Cause unknown Additional Evaluation Detail x-ray: S-shaped lumbar scoliosis with severe spondylosis. She lives alone in a house with steps to enter. She is limiting her normal task due to her increased symptoms. She is using an SBQC. Subjective Information Reports improved back/leg pain Query Text:As Reported By Patient/ for the past 4 day. She is Family performing more household task . She is getting up more at home. She is performing 15 min of leg bike at home 3x/wk. She is not required to rest as frequently or for as long with activities at home. She is using the SI belt with improved symptoms. Pain Assessment Self Report Pain Assessment Left Lower Back Reported Pain Level 0 Cervical and Lumbar ROM Lumbar ROM Lumbar Flexion Active Floor:Hands to: Lumbar Comments 75% trunk rotation jennifer without pain in seated, full flex in seatd position- no pain Lower Extremity Muscle Strength Testing Gross Lower Extremity Strength right ankle DF 5/5, knee ext: 5/5, hip flex: 11/11, abd: 10/11 full bridge with resistance Hip Strength Left Hip Flexion Strength 3+ Fair + Hip Ex
== END 2021-12-17 10:30 | disposition home or self-care (01) ==
LOC: ANHPT 14:00
PROVIDERS: PCP Internal Medicine; Visit Provider Internal Medicine
DX: M54.42 Lumbago with sciatica, left side (principal); G20 Parkinson's disease
CPT/HCPCS: 97110; 97112; 97116; 97140; 97162; 97530

== ENCOUNTER 2025-03-26 10:32 | Outpatient (CLI) | payer MEDICARE, SELFPAY ==
--- NOTE | ~2025-03-26 | XR_ITS ---
Right Shoulder Technique: AP and scapular Y views were obtained. Clinical History: Pain Findings: No fracture or dislocation is seen. Osseous alignment is anatomic. There is severe glenohum eral joint degenerative change with large inferomedial humeral head osteophyte and joint space narrow ing/sclerosis. AC joint intact. Soft tissues are unremarkable. Impression: Severe glenohumeral joint degenerative change, as above. Reviewed, dictated and finalized at location M. Impression: Severe glenohumeral joint degenerative change, as above.
--- NOTE | ~2025-03-26 | XR_ITS ---
Left Shoulder Technique: AP and scapular Y views were obtained. Clinical History: Pain Findings: No fracture or dislocation is seen. Osseous alignment is anatomic. The glenohumeral joint d emonstrates moderate degenerative change. AC joint intact. Soft tissues are unremarkable. Impression: Moderate glenohumeral joint degenerative change. Reviewed, dictated and finalized at location . Impression: Moderate glenohumeral joint degenerative change.
== END 2025-03-26 10:33 | disposition home or self-care (01) ==
PROVIDERS: PCP Internal Medicine; Visit Provider Nurse Practitioner Family
DX: M19.012 Primary osteoarthritis, left shoulder (principal); M19.011 Primary osteoarthritis, right shoulder
CPT/HCPCS: 73030

== ENCOUNTER 2025-06-05 09:43 | Outpatient (CLI) | payer MEDICARE, SELFPAY ==
--- NOTE | ~2025-06-05 | CT_ITS ---
EXAMINATION: CT shoulder RT wo con DATE: 06/05/2025 10:04 INDICATION: Primary osteoarthritis, right shoulder. TECHNIQUE: Computed tomography (CT) of the right shoulder was performed without intravenous contrast. Automated exposure control and iterative reconstruction technique were employed. The dose-length product was 314.03 mGy-cm. COMPARISON: Right shoulder radiographs 05/30/2025 FINDINGS: Alignment is normal. No acute fracture. There is an old fracture of glenoid with nonunion. There is severe osteoarthritis of glenohumeral joint including bone volume loss of glenoid. There is severe acromioclavicular joint osteoarthritis. There is a large glenohumeral joint effusion with loose bodies. Subcoracoid impingement is noted. IMPRESSION: 1. 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 2. Severe glenohumeral joint osteoarthritis including bone volume loss of glenoid. 3. Large glenohumeral joint effusion with loose bodies. 4. Severe acromioclavicular joint osteoarthritis. Reviewed, dictated and finalized at location E. IMPRESSION: 1. 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 2. Severe glenohumeral joint osteoarthritis including bone volume loss of gleno id. 3. Large glenohumeral joint effusion with loose bodies. 4. Severe acromioclavicular joint osteoarthritis.
== END 2025-06-05 09:44 | disposition home or self-care (01) ==
LOC: MICIMG 09:44
PROVIDERS: PCP Internal Medicine; Visit Provider Physician Assistant Surgical
DX: S42.14 Fracture of glenoid cavity of scapula (principal); X58.XXXD Exposure to other specified factors, subsequent encounter; M25.411 Effusion, right shoulder; M24.011 Loose body in right shoulder; M19.011 Primary osteoarthritis, right shoulder
CPT/HCPCS: 73200

== ENCOUNTER 2025-07-30 07:11 | Outpatient (CLI) | payer MEDICARE, SELFPAY ==
--- NOTE | ~2025-07-30 | MR_ITS ---
EXAMINATION: MR cervical spine wo con DATE: 07/30/2025 07:50 INDICATION: Syrinx. Neck pain. TECHNIQUE: Magnetic resonance imaging (MRI) of the cervical spine was performed without intravenous contrast. COMPARISON: None FINDINGS: There is 3 mm retrolisthesis of C5 on C6. There is mild chronic anterior wedging of C5 and C6 vertebral bodies. There is moderately decreased disc height from C4-C5 through C6-C7. The spinal cord signal intensity is normal. The following disc levels are specifically discussed: C2-C3: There is a left central protrusion with annular fissure. There is no uncovertebral joint osteoarthritis. There is severe bilateral facet joint osteoarthritis. There is mild bilateral neural foraminal stenosis. There is mild central canal stenosis. C3-C4: The disc does not extend beyond the endplate margin. There is mild right and moderate left uncovertebral joint osteoarthritis. There is severe right and moderate left facet joint osteoarthritis. There is mild left neural foraminal stenosis. There is no central canal stenosis. C4-C5: The disc is bulging. There is severe bilateral uncovertebral joint osteoarthritis. There is mild bilateral facet joint osteoarthritis. There is moderate right and mild left neural foraminal stenosis. There is mild central canal stenosis. C5-C6: The disc is bulging. There is severe bilateral uncovertebral joint osteoarthritis. There is mild bilateral facet joint osteoarthritis. There is moderate bilateral neural foraminal stenosis. There is mild central canal stenosis. C6-C7: The disc is bulging. There is severe bilateral uncovertebral joint osteoarthritis. There is severe bilateral facet joint osteoarthritis. There is mild right and moderate left neural foraminal stenosis. There is mild central canal stenosis. C7-T1: The disc does not extend beyond the endplate margin. There is no uncovertebral joint osteoarthritis. There is severe bilateral facet joint osteoarthritis. There is mild bilateral neural foraminal stenosis. There is no central canal stenosis. IMPRESSION: 1. Normal spinal cord. 2. Moderate cervical spondylosis. Reviewed, dictated and finalized at location E. TRACER
== END 2025-07-30 07:12 | disposition home or self-care (01) ==
LOC: MICIMG 07:13
PROVIDERS: PCP Internal Medicine
DX: G95.0 Syringomyelia and syringobulbia (principal); M47.892 Other spondylosis, cervical region
CPT/HCPCS: 72141